=== PATIENT | female | born 2000 | race Caucasian/White ===

== ENCOUNTER 2021-04-14 18:52 | Emergency (ER) | payer BC ==
[2021-04-14] MEDS ORDERED: predniSONE 20 MG TAB PO SCH (20:00)
[2021-04-14] MEDS ORDERED: Lidocaine 4% Cream 5 GM TUBE w/ Tegaderm ONE (20:08)
[2021-04-14] MEDS ORDERED: predniSONE 20 MG TAB ONE (20:09)
[2021-04-14] MEDS ORDERED: HYDROcodone/Acetaminophen 10/325 mg Tablet ONE (20:09)
== END 2021-04-14 20:23 | disposition home or self-care (01) ==
LOC: ERS 18:52
DX: T63.431A Toxic effect of venom of caterpillars, accidental (unintentional), initial encounter (principal)
CPT/HCPCS: 99282; J7512